=== PATIENT | female | born 2000 | race Caucasian/White ===

== ENCOUNTER 2020-02-25 12:16 | Emergency (ER) | payer SELFPAY ==
[2020-02-25] MEDS ORDERED: Bicillin LA 2.4 MILL.UNITS/4 ML SYRINGE ONE ×3 (13:49→13:52)
[2020-02-25] MEDS ORDERED: Bicillin LA 1.2 MILLION UNITS/2 ML SYRINGE ONE (13:52)
[2020-02-25] MEDS ORDERED: Dexamethasone 10 MG/ML VIAL ONE (13:52)
== END 2020-02-25 14:30 | disposition home or self-care (01) ==
LOC: ERS 12:16
DX: J03.90 Acute tonsillitis, unspecified (principal); F41.9 Anxiety disorder, unspecified; F32.9 Major depressive disorder, single episode, unspecified; Z87.891 Personal history of nicotine dependence
CPT/HCPCS: 87081; 87430; 96372; 99284; J0561; J1100

== ENCOUNTER 2021-12-05 22:41 | Emergency (ER) | payer OTHER, SELFPAY ==
[2021-12-05 23:13] LABS: #Eosinphils 0.1 thou/uL (0.0-0.7); #Lymphocytes 2.1 thou/uL (1.20-3.40); #Monocytes 0.8 thou/uL (0.11-0.59); %Basophils 0.1 % (0.0-1.0); %Eosinophils 0.3 % (0.0-10.0); %Lymphocytes 11.6 % (21.0-51.0); %Monocytes 4.3 % (0.0-10.0); %Neutrophils 83.7 % (42.0-75.0); Hemoglobin 11.9 g/dL (12.0-16.0); Mean Corpuscular HGB CONC 31.7 g/dL (32.0-36.0); Mean Corpuscular Hemoglobin 25.8 pg (27.0-31.0); Mean Corpuscular Volume 81.3 fL (78.0-98.0); Platelet Count 280 thou/uL (130-400); RBC Distribution Width 15.4 % (11.5-14.5); White Blood Cell (WBC) Count 17.9 thou/uL (4.8-10.8)
[2021-12-05 23:21] LABS: BHCG - Serum Negative (NEGATIVE); Pregs Control Background? CLEAR/WHITE (CLR/WHITE); Pregs Control Bar Appear? YES (CONTROL BAR)
[2021-12-05 23:29] LABS: Bilirubin Negative (Negative); Blood, Urine 1+ (Negative); Clarity Turbid (Clear); Glucose, Urine (Dipstick) Normal (Negative); Ketone, Urine Negative (Negative); Leukocyte 500 Leu/uL (Negative); Nitrite Negative (Negative); Protein, Urine (Dipstick) Negative (Neg-Trace); Renal Epithelial 0-3 HPF (None Seen); Specific Gravity, Urine 1.015 (1.002-1.036); Urobilinogen Normal mg/dL (Less than 2); WBC/HPF Greater than 50 HPF (0-3); pH, Urine 6.5 (5.0-9.0)
[2021-12-05] MEDS ORDERED: Ketorolac Tromethamine 30 MG/ML VIAL ONE (23:30)
[2021-12-05 23:34] LABS: Bacteria/HPF 1+ HPF (None Seen)
[2021-12-05 23:37] LABS: ALT (SGPT) 20 U/L (8-55); AST (SGOT) 18 U/L (5-34); Albumin 4.3 g/dL (3.5-5.0); Alkaline Phosphatase 84 U/L (40-110); Anion Gap 12 mmol/L (10-20); BUN (Urea Nitrogen) 12 mg/dL (7.0-18.7); Bilirubin, Total 0.3 mg/dL (0.2-1.2); Calc. Creatinine Clearance 0 mL/min (70-130); Calcium 9.6 mg/dL (7.8-10.44); Carbon Dioxide 29 mmol/L (22-29); Chloride 104 mmol/L (98-107); Estimated GFR 94; Globulin 3.6 g/dL (2.4-3.5); Glucose 93 mg/dL (70-105); Lipase 56 U/L (8-78); Protein, Total 7.9 g/dL (6.0-8.3); Sodium 141 mmol/L (136-145)
[2021-12-05] MEDS ORDERED: cefTRIAXone\\ROCEPHIN 2 GM VIAL ONE (23:42)
== END 2021-12-06 00:24 | disposition home or self-care (01) ==
LOC: ERS 22:41
DX: N39.0 Urinary tract infection, site not specified (principal); Z87.891 Personal history of nicotine dependence
CPT/HCPCS: 80053; 81003; 81015; 83690; 84703; 85025; 96365; 96375; J0696; J1885

== ENCOUNTER 2023-01-13 17:56 | Emergency (ER) | payer OTHER, SELFPAY ==
[2023-01-13 20:03] LABS: Bacteria/HPF None Seen HPF (None Seen); Bilirubin Negative (Negative); Blood, Urine Negative (Negative); CAUTI Indications for Culture Dysuria,urgency,freq; Clarity Turbid (Clear); Glucose, Urine (Dipstick) Normal (Negative); Ketone, Urine Negative (Negative); Leukocyte 500 Leu/uL (Negative); Nitrite Negative (Negative); Protein, Urine (Dipstick) Negative (Neg-Trace); RBC/HPF 0-3 HPF (0-3); Specific Gravity, Urine 1.024 (1.002-1.036); Urobilinogen Normal mg/dL (Less than 2); pH, Urine 6.5 (5.0-9.0)
[2023-01-13 20:08] LABS: Pregnancy Test - Urine (BHCG) Negative (Negative); Pregu Control Background? CLEAR/WHITE (CLR/WHITE); Pregu Control Bar Appear? YES (CONTROL BAR); Specific Gravity 1.024 (1.002-1.036)
[2023-01-13 20:11] LABS: Urine Culture Reflex Yes Yes
[2023-01-13] MEDS ORDERED: predniSONE 20 MG TAB ONE (20:55)
[2023-01-13] MEDS ORDERED: Cefuroxime 250 MG TAB PO SCH (21:00)
[2023-01-13] MEDS ORDERED: predniSONE 50 MG TAB PO SCH (21:00)
== END 2023-01-13 21:06 | disposition home or self-care (01) ==
LOC: ERS 17:56
DX: J03.90 Acute tonsillitis, unspecified (principal); Z87.891 Personal history of nicotine dependence
CPT/HCPCS: 81001; 81025; 87081; 87086; 87430; 99283; J7512

== ENCOUNTER 2023-02-17 13:25 | Emergency (ER) | payer OTHER, SELFPAY ==
[2023-02-17] MEDS ORDERED: Acetaminophen 500 MG TAB ONE (14:57)
[2023-02-17] MEDS ORDERED: Bacitracin 1 PK ONE (14:57)
== END 2023-02-17 15:44 | disposition home or self-care (01) ==
LOC: ERS 13:25
DX: T23.152A Burn of first degree of left palm, initial encounter (principal); T23.122A Burn of first degree of single left finger (nail) except thumb, initial encounter; F17.290 Nicotine dependence, other tobacco product, uncomplicated; X15.8XXA Contact with other hot household appliances, initial encounter
CPT/HCPCS: 99283